=== PATIENT | male | born 1990 | race American Indian/Alaskan Native ===

== ENCOUNTER 2022-03-11 11:06 | Emergency (ER) | payer SELFPAY ==
[2022-03-11] MEDS ORDERED: SULFAMETHOXAZOLE/TRIMETHOPRIM 800/160MG DS TAB PO ONE (18:00)
[2022-03-11] MEDS ORDERED: oxyCODONE /ACETAMINOPHEN 5-325MG TAB PO ONE (18:00)
[2022-03-11] MEDS ORDERED: KETOROLAC 10 MG TAB PO ONE (18:00)
--- NOTE | 2022-03-11 18:01 | Emergency Department Report ---
ED Extremity Problem HPI - General Chief complaint: Pain General Stated complaint: INFECTED FINGER Time Seen by Provider: 03/11/22 17:34 Source: patient Mode of arrival: Ambulatory Limitations: No Limitations - History of Present Illness Initial comments: 31-year-old black male with no past medical history presents to the emergency department for evaluation of left arm pain and swelling. He states that about 1.5 weeks ago he slammed his left arm under refrigerator and broke the nailbed. He states that since then he has had some pain and swelling, but when he woke up this morning was swollen more and had excruciating pain. He states that pain has been unrelieved by Tylenol. He denies fever. MD Complaint: extremity pain, extremity swelling -: Sudden, week(s) (1.5) Location: left, other (Thumb) History of Same: No -: No fever Severity scale (0 -10): 10 Quality: aching Consistency: constant Worsens with: palpation Associated Symptoms: denies: chest pain, shortness of breath, fever, myalgias, arthralgias, rash - Related Data Previous Rx's Medication Instructions Recorded Last Taken Type Acetaminophen/Codeine [Tylenol 1 tab PO Q6H PRN #12 tab 03/11/22 Unknown Rx /Codeine # 3 tab] Naproxen [Naprosyn] 500 mg PO BID #14 tab 03/11/22 Unknown Rx Sulfamethoxazole/Trimethoprim 1 each PO BID #14 tab 03/11/22 Unknown Rx [Bactrim DS TAB] Allergies Allergy/AdvReac Type Severity Reaction Status Date / Time No Known Allergies Allergy Verified 03/11/22 17:50 ED Review of Systems ROS: Stated complaint: INFECTED FINGER Other details as noted in HPI Comment: All other systems reviewed and negative Constitutional: denies: chills, fever Respiratory: denies: shortness of breath Cardiovascular: denies: chest pain Gastrointestinal: denies: abdominal pain, nausea, vomiting Musculoskeletal: denies: back pain Neurological: denies: headache, weakness ED Past Medical Hx - Past Medical History Previous Medical History?: No - Surgical History Past Surgical History?: No - Social History Smoking Status: Current Every Day Smoker - Medications Home Medications: Home Medications Medication Instructions Recorded Confirmed Last Taken Type Acetaminophen/Codeine [Tylenol 1 tab PO Q6H PRN #12 tab 03/11/22 Unknown Rx /Codeine # 3 tab] Naproxen [Naprosyn] 500 mg PO BID #14 tab 03/11/22 Unknown Rx Sulfamethoxazole/Trimethoprim 1 each PO BID #14 tab 03/11/22 Unknown Rx [Bactrim DS TAB] ED Physical Exam - General Limitations: No Limitations General appearance: alert, in no apparent distress - Head Head exam: Present: atraumatic, normocephalic - Eye Eye exam: Present: normal appearance. Absent: conjunctival injection - Neck Neck exam: Present: normal inspection - Respiratory Respiratory exam: Absent: respiratory distress - Cardiovascular Cardiovascular Exam: Present: regular rate - GI/Abdominal GI/Abdominal exam: Absent: distended - Extremities Exam Extremities exam: Absent: normal inspection - Expanded Upper Extremity Exam Left Upper Arm exam: Present: normal inspection Elbow exam: Present: normal inspection Forearm Wrist exam: Present: normal inspection Hand Wrist exam: Present: tenderness, swelling, erythema. Absent: normal inspection (Noted to have swelling, tenderness, and erythema to the pad of left thumb. Noted to have open crack in the center of nailbed of left thumb. No drainage noted. Area not fluctuant), full ROM, nail avulsion, subungual hematoma Vascular: Present: normal capillary refill, radial pulse. Absent: vascular compromise, Pallo, pulse deficit radial art - Back Exam Back exam: Present: normal inspection. Absent: vertebral tenderness - Neurological Exam Neurological exam: Present: alert, oriented X3, normal gait - Psychiatric Psychiatric exam: Present: normal affect, normal mood - Skin Skin exam: Present: warm, dry, normal color ED Course Vital Signs 03/11/22 03/11/22 11:16 18:28 Temperature 98.6 F 98.6 F Pulse Rate 73 72 Respiratory 16 16 Rate Blood Pressure 133/86 Blood Pressure 138/82 [Right] O2 Sat by Pulse 98 99 Oximetry - Nerve Block Consent Obtained: verbal consent Time Out Performed: Yes Local Anesthetic Used: Lidocaine 1% Amount of anesthesia used: 3 Side: left Nerve Blocks: digital Procedure Successful: Yes Complications: none Patient Tolerated Procedure: well Additional Comments: Nerve block of the left thumb for pain management only. Pain was resolved after procedure. ED Medical Decision Making - Medical Decision Making 31-year-old black male with no past medical history presents to the emergency department for evaluation of left arm pain and swelling. He states that about 1.5 weeks ago he slammed his left arm under refrigerator and broke the nailbed. He states that since then he has had some pain and swelling, but when he woke up this morning was swollen more and had excruciating pain. He states that pain has been unrelieved by Tylenol. He denies fever. Exam and symptoms consistent with left thumb felon. Patient treated with Bactrim, Toradol, and Percocet while in the emergency department, and he was given a nerve block per procedure note for pain management. Patient will be discharged home with 7-day course of Bactrim, naproxen, and Tylenol 3 to use as directed. He is advised to follow-up with his primary care provider if no improvement or worsening symptoms. He is advised to return to the emergency department immediately if he develops fever or for any concerning symptoms. He verbalizes understanding of and agreement with plan of care. Critical care attestation.: If time is entered above; I have spent that time in minutes in the direct care of this critically ill patient, excluding procedure time. ED Disposition Clinical Impression: Felon of finger of left hand Disposition: 01 HOME / SELF CARE / HOMELESS Is pt being admited?: No Does the pt Need Aspirin: No Condition: Stable Instructions: Fingertip Infection Additional Instructions: Take medication as prescribed. Follow-up with primary care provider if no improvement or worsening symptoms. Return to the emergency department as needed. Prescriptions: Sulfamethoxazole/Trimethoprim [Bactrim DS TAB] 1 each PO BID #14 tab Naproxen [Naprosyn] 500 mg PO BID #14 tab Acetaminophen/Codeine [Tylenol /Codeine # 3 tab] 1 tab PO Q6H PRN #12 tab PRN Reason: Pain , Severe (7-10) Referrals: FRANCISCO BALDERAS MD [Staff Physician] - 3-5 Days Forms: Work/School Release Form(ED) Time of Disposition: 18:01
[2022-03-11 18:29] VITALS: BP 138/82
== END 2022-03-11 18:55 | disposition home or self-care (01) ==
LOC: ED 11:06
DX: L03.012 Cellulitis of left finger (principal); Z79.899 Other long term (current) drug therapy
CPT/HCPCS: 99282